=== PATIENT | female | born 1955 | race Asian ===

== ENCOUNTER 2017-09-30 09:46 | Emergency (ER) | payer OTHER ==
[~2017-09-30] VITALS: Ht 162.6 cm; Wt 65.8 kg
[2017-09-30 10:25] VITALS: BP 170/93
[2017-09-30] MEDS ORDERED: IBUPROFEN600 MG ORAL (10:32)
[2017-09-30] MEDS ORDERED: ACYCLOVIR400 MG ORAL (10:32)
[2017-09-30 10:56] VITALS: BP 170/93
--- NOTE | 2017-09-30 11:05 | Emergency Room Report ---
History of Present Illness General Chief Complaint: Pain Source: Patient Present Illness HPI 61-year-old female, history of hyperlipidemia, presenting with a rash and pain to left side. Patient is [place] speaking, daughter states that pain feels like skin is pulling and shooting. No fever no chills. No nausea vomiting diarrhea. She is eating and drinking well Allergies: Coded Allergies: No Known Allergies (Unverified , 09/30/17) Patient History Past Medical History: see triage record Past Surgical History: none Pertinent Family History: none Last Menstrual Period: Post Reviewed Nursing Documentation: PMH: Agreed, PSxH: Agreed Review of Systems All Other Systems: negative except mentioned in HPI Physical Exam Vital Signs Date Time Temp Pulse Resp B/P (MAP) Pulse Ox O2 Delivery O2 Flow Rate FiO2 09/30/17 09:50 97.9 78 19 170/93 95 Room Air Sp02 EP Interpretation: reviewed, normal General Appearance: normal inspection, well appearing, no apparent distress, alert, GCS 15, non-toxic Head: normocephalic, atraumatic Eyes: bilateral eye normal inspection, bilateral eye PERRL, bilateral eye EOMI ENT: normal ENT inspection, normal pharynx, normal voice, moist mucus membranes Neck: normal inspection, full range of motion, supple Respiratory: normal inspection, lungs clear, normal breath sounds, no respiratory distress, no retraction, no wheezing, speaking full sentences, chest symmetrical Cardiovascular #1: normal inspection, regular rate, rhythm, no edema, normal capillary refill Cardiovascular #2: 2+ radial (R), 2+ radial (L) Gastrointestinal: normal inspection, non tender, soft, non-distended, no guarding Musculoskeletal: normal inspection, back normal, normal range of motion, non- tender Neurologic: normal inspection, alert, oriented x3, responsive, motor strength/ tone normal, sensory intact, normal gait, speech normal Psychiatric: normal inspection, judgement/insight normal, memory normal Skin: warm/dry, well hydrated, normal turgor, other - Vesicular rash noted left side, following a dermatome, tender to palpation Medical Decision Making Diagnostic Impression: Primary Impression: Shingles ER Course 61-year-old female, with painful rash to left side DDX: Appears to be shingles Plan: Discharge home with medication ER course: Patient has remained stable during ED stay. Disposition: Patient is to be discharged to home. Prescriptions given are Acyclovir and Motrin Patient is instructed to follow up with their primary care doctor within 5 days. Strict return precautions discussed with patient such as fever, chills, worsening/severe pain, chest pain, SOB, nausea, vomiting, which may indicate severe illness. Patient verbalizes understanding and agrees with plan. Please note that this Emergency Department Report was dictated using [employer] technology software, occasionally this can lead to erroneous entry secondary to interpretation by the dictation equipment Last Vital Signs Date Time Temp Pulse Resp B/P (MAP) Pulse Ox O2 Delivery O2 Flow Rate FiO2 09/30/17 09:50 97.9 78 19 170/93 95 Room Air Disposition: HOME, SELF-CARE Condition: Stable Scripts Ibuprofen* (MOTRIN*) 600 Mg Tablet 600 MG ORAL Q8H Y for For Pain, #30 TAB 0 Refills Prov: Caron Madison M.D. 09/30/17 Acyclovir* (ACYCLOVIR*) 400 Mg Tablet 800 MG ORAL FIVE TIMES A DAY for 7 Days, #56 TAB 0 Refills Prov: Caron Madison M.D. 09/30/17 Patient Instructions: Shingles, [id number] Caron Madison M.D. Sep 30, 2017 11:05
== END 2017-09-30 11:02 | disposition home or self-care (01) ==
LOC: EMR 10:17
DX: B02.9 Zoster without complications (principal)
CPT/HCPCS: 99283